=== PATIENT | female | born 2005 | race Caucasian/White ===

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

== ENCOUNTER 2023-01-21 00:30 | Emergency (ER) | payer OTHER ==
[~2023-01-21] VITALS: Ht 167.6 cm; Wt 55.8 kg
[2023-01-21 00:35] VITALS: BP 107/58
--- NOTE | 2023-01-21 00:35 | NUR ---
TO BED AMBULATORY
--- NOTE | 2023-01-21 00:47 | NUR ---
JIM PENA AT BEDSIDE.
[2023-01-21] MEDS ORDERED: NACL 0.9% 1,000 ML IV ONE (00:50)
[2023-01-21] MEDS ORDERED: POLYETHYLENE GLYCOL 17 GM/PKT PO ONE (01:00)
[2023-01-21] MEDS ORDERED: LACTULOSE 20 GM/30 ML UDC PO ONE (01:00)
--- NOTE | 2023-01-21 01:12 | NUR ---
URINE SAMPLE COLLECTED
--- NOTE | 2023-01-21 02:02 | NUR ---
X-Ray at bedside.
--- NOTE | 2023-01-21 02:44 | NUR ---
Dr. Eric explained results and treatment plans.
[2023-01-21] MEDS ORDERED: MIRABULK PO (02:49)
[2023-01-21] MEDS ORDERED: NA P133E RC (02:50)
[2023-01-21] MEDS ORDERED: MAGN296S48 PO (02:50)
[2023-01-21 02:59] VITALS: BP 114/58
--- NOTE | 2023-01-21 02:59 | NUR ---
Patient discharged with v/s stable. Written and verbal after care instructions given and explained. Patient alert, oriented and verbalized understanding of instructions. Ambulatory with steady gait. All questions addressed prior to discharge. ID band removed. Patient advised to follow up with PMD. Rx of Citroma, Miralax and Fleet Emena given. Patient educated on indication of medication including possible reaction and side effects. Opportunity to ask questions provided and answered.
== END 2023-01-21 02:59 | disposition home or self-care (01) ==
LOC: MED 00:30
DX: K59.00 Constipation, unspecified (principal); Z79.899 Other long term (current) drug therapy
CPT/HCPCS: 74018; 81025; 96360; 99283; J7030; Q0092